=== PATIENT | male | born 1980 | race Caucasian/White ===

== ENCOUNTER 2021-07-11 11:31 | Emergency (ER) | payer MEDICAID ==
[~2021-07-11] VITALS: Ht 185.4 cm; Wt 95.3 kg
[2021-07-11 11:31] VITALS: BP 137/85
--- NOTE | 2021-07-11 11:31 | NUR ---
PT BIBA AND TAKEN TO BED 4
--- NOTE | 2021-07-11 11:31 | NUR ---
40Y MALE BIBA FROM [facility] DUE TO TONIC-CLONIC SEZIURE THAT LASTED ABOUT 3MIN. SEZIURE WAS WITNESSED BY STAFF. PT WAS ASSISTED TO FLOOR, BUT HIT HIS NOSE. PT HAS PAIN IN CERVICAL REGION, 01/15. PT IS A&OX4. PT DENIES ANY CP, FEVER/CHILLS, N/V, SOB AT THIS TIME. PT STILL HAS FULL SENSATION IN BILATERAL UE AND LE. PMH: SEZIURES, SCHIZO ALLERGIES: DENIES
--- NOTE | 2021-07-11 12:21 | NUR ---
dr. olivier bedside evaluating pt
--- NOTE | 2021-07-11 12:41 | NUR ---
PT PROVIDED WITH URINAL BEDSIDE, UNABLE TO PROVIDE URINE AT THIS TIME
--- NOTE | 2021-07-11 12:44 | NUR ---
XRAY AT BEDSIDE
[2021-07-11 13:23] LABS: BASOPHILS % (AUTO) 0.3 % (0.0-2.0); EOSINOPHILS % (AUTO) 0.6 % (0.0-4.0); HEMATOCRIT 42.9 % (36-52); HEMOGLOBIN 14.4 g/dL (12.0-18.0); LYMPHOCYTES # (AUTO) 1.2 K/uL (2.0-11.5); LYMPHOCYTES % (AUTO) 26.4 % (20.5-51.1); MEAN CORPUSCULAR HEMOGLOBIN 28 pg (27-31); MEAN CORPUSCULAR HGB CONC 34 g/dL (33-37); MEAN CORPUSCULAR VOLUME 83.3 fL (80-94); MONOCYTES # (AUTO) 0.4 K/uL (0.8-1.0); MONOCYTES % (AUTO) 7.8 % (1.7-9.3); NEUTROPHILS # (AUTO) 3.1 K/uL (1.8-7.7); NEUTROPHILS % (AUTO) 64.9 % (42.2-75.2); PLATELET COUNT (AUTO) 161 K/uL (140-450); RED BLOOD CELL COUNT(AUTO) 5.15 MIL/uL (4.20-6.10); RED CELL DISTRIBUTION WIDTH 15.4 % (11.6-13.7); WHITE BLOOD COUNT (AUTO) 4.7 K/uL (4.8-10.8)
--- NOTE | 2021-07-11 13:31 | NUR ---
PT RETURNED TO BED [address] [facility]
[2021-07-11 13:34] LABS: ANION GAP 8.4 (8-16); CARBON DIOXIDE 31.3 mmol/L (21-32); CREATININE 0.8 mg/dL (0.6-1.3); POTASSIUM 4.7 mmol/L (3.5-5.1)
[2021-07-11 13:36] LABS: MAGNESIUM 1.8 mg/dL (1.8-2.4); PHOSPHORUS 2.7 mg/dL (2.5-4.9)
--- NOTE | 2021-07-11 13:47 | NUR ---
Patient appears to be resting comfortably in bed. Vital Signs within normal limits. Respirations even and unlabored.
--- NOTE | 2021-07-11 13:52 | NUR ---
DR. RAVI BEDSIDE COLLECTING PATIENT C-SPINE
--- NOTE | 2021-07-11 13:55 | NUR ---
URINE COLLECTED AND WALKED TO LAB
[2021-07-11 14:10] LABS: APPEARANCE,URINE CLEAR (CLEAR); BILIRUBIN,URINE NEGATIVE (NEGATIVE); BLOOD, URINE NEGATIVE (NEGATIVE); COLOR,URINE YELLOW (YELLOW); LEUKOCYTE ESTERASE ,URINE NEGATIVE (NEGATIVE); NITRITE, URINE NEGATIVE (NEGATIVE); UGLUCOSE TRACE (NEGATIVE)
[2021-07-11 14:28] LABS: BARBITURATE, URINE NEGATIVE ng/ml (NEG <=200)
[2021-07-11 14:30] LABS: CANNABINOID, URINE NEGATIVE ng/mL (NEG <=50); COCAINE, URINE NEGATIVE ng/mL (NEG <=300); OPIATE, URINE NEGATIVE ng/mL (NEG <=2000); PHENCYCLIDINE SCREEN,URINE NEGATIVE ng/mL (NEG <=25)
[2021-07-11 14:44] LABS: BENZODIAZEPINE, URINE NEGATIVE ng/mL (NEG <=200)
--- NOTE | 2021-07-11 15:10 | NUR ---
CALLED AND SPOKE WITH CAMI FROM [facility], WAS INFORMED JIMMIE SHOULD BE HERE AT 1600 FOR PATIENT DEMAND EQUIPMENT REPAIRER Addendum: 07/11/21 at [id number] by [employer] PHONE NUMBER [phone]
--- NOTE | 2021-07-11 16:00 | NUR ---
Patient appears to be resting comfortably in bed. Vital Signs within normal limits. Respirations even and unlabored.
--- NOTE | 2021-07-11 16:33 | NUR ---
PT PROVIDED WITH APPLE JUICE BEDSIDE
[2021-07-11 17:12] VITALS: BP 105/75
--- NOTE | 2021-07-11 17:12 | NUR ---
Patient discharged with v/s stable. Written and verbal after care instructions given and explained. Patient verbalized understanding. Ambulatory with steady gait. All questions addressed prior to discharge. Advised to follow up with PMD.
== END 2021-07-11 17:12 | disposition home or self-care (01) ==
LOC: MED 11:31
DX: S16.1XXA Strain of muscle, fascia and tendon at neck level, initial encounter (principal); S09.90XA Unspecified injury of head, initial encounter; G40.509 Epileptic seizures related to external causes, not intractable, without status epilepticus; F20.9 Schizophrenia, unspecified; F17.210 Nicotine dependence, cigarettes, uncomplicated; W01.198A Fall on same level from slipping, tripping and stumbling with subsequent striking against other object, initial encounter; Y92.89 Other specified places as the place of occurrence of the external cause; Y93.89 Activity, other specified; Y99.8 Other external cause status
CPT/HCPCS: 36415; 70450; 71045; 72125; 80048; 80305; 81003; 83735; 84100; 85025; 93005; 99285

== ENCOUNTER 2021-08-17 14:16 | Emergency (ER) | payer MEDICAID ==
[~2021-08-17] VITALS: Ht 172.7 cm; Wt 63.5 kg
[2021-08-17 14:16] VITALS: BP 129/80
--- NOTE | 2021-08-17 14:17 | NUR ---
BIBA TAKEN TO BED 6
--- NOTE | 2021-08-17 14:26 | NUR ---
DR LLAMAS AT BEDSIDE EVALUATING PT
--- NOTE | 2021-08-17 15:05 | NUR ---
PT OFFERED ICE WATER
[2021-08-17 15:40] LABS: BASOPHILS % (AUTO) 0.3 % (0.0-2.0); EOSINOPHILS # (AUTO) 0.1 K/uL (0-0.4); EOSINOPHILS % (AUTO) 1.1 % (0.0-4.0); HEMATOCRIT 41.2 % (36-52); LYMPHOCYTES # (AUTO) 1.1 K/uL (2.0-11.5); LYMPHOCYTES % (AUTO) 23.2 % (20.5-51.1); MEAN CORPUSCULAR HEMOGLOBIN 28 pg (27-31); MEAN CORPUSCULAR HGB CONC 34 g/dL (33-37); MEAN CORPUSCULAR VOLUME 82.7 fL (80-94); MONOCYTES # (AUTO) 0.5 K/uL (0.8-1.0); MONOCYTES % (AUTO) 10.8 % (1.7-9.3); NEUTROPHILS # (AUTO) 3.1 K/uL (1.8-7.7); NEUTROPHILS % (AUTO) 64.6 % (42.2-75.2); PLATELET COUNT (AUTO) 140 K/uL (140-450); RED BLOOD CELL COUNT(AUTO) 4.99 MIL/uL (4.20-6.10); RED CELL DISTRIBUTION WIDTH 15.4 % (11.6-13.7); WHITE BLOOD COUNT (AUTO) 4.9 K/uL (4.8-10.8)
[2021-08-17 15:59] LABS: ANION GAP 14.1 (8-16); CARBON DIOXIDE 24.8 mmol/L (21-32); CREATININE 1.2 mg/dL (0.6-1.3); POTASSIUM 3.9 mmol/L (3.5-5.1)
[2021-08-17 17:06] VITALS: BP 108/73
--- NOTE | 2021-08-17 17:27 | NUR ---
Patient discharged with v/s stable. Written and verbal after care instructions ABOUT BREAKTHROUGH SEIZURES given and explained. Patient verbalized understanding. Ambulatory with steady gait. All questions addressed prior to discharge. Advised to follow up with PMD.
== END 2021-08-17 17:27 | disposition home or self-care (01) ==
LOC: MED 14:16
DX: G40.509 Epileptic seizures related to external causes, not intractable, without status epilepticus (principal); F17.210 Nicotine dependence, cigarettes, uncomplicated
CPT/HCPCS: 36415; 80048; 85025; 99283